=== PATIENT | male | born 1950 | race Caucasian/White ===

== ENCOUNTER 2016-07-27 20:19 | Emergency (ER) | payer BC ==
[~2016-07-27] VITALS: Ht 160 cm; Wt 50.0 kg
[2016-07-27 20:25] VITALS: Ht 160 cm; Wt 50.0 kg
[2016-07-27 23:08] VITALS: BP 125/89; PULSE 78; RESP 18
--- NOTE | 2016-08-02 11:33 | ERD ---
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 The patient reports a 10 out of 10 pain and it is very difficult for her to ambulate. She denies any loss of bowel or bladder function. There is no head injury or loss of consciousness. She denies any fevers, chills, nausea, vomiting, diarrhea, or other injuries at this time. ROS All systems reviewed and are negative except as per history of present illness. Allergies Allergies: Coded Allergies: NSAIDS (Non-Steroidal Anti-Inflamma (Verified Allergy, Unknown, 07/27/16) Penicillins (Verified Allergy, Unknown, 07/27/16) Zcttovz-Rdx-Edp Reductase Inhibitor (Verified Allergy, Unknown, 07/27/16) Sulfa (Sulfonamide Antibiotics) (Verified Allergy, Unknown, 07/27/16) codeine (Verified Allergy, Unknown, 07/27/16) nitrofurantoin (Verified Allergy, Unknown, 07/27/16) PMhx/Soc History of Surgery: Yes (RECTAL, HYSTERECTOMY, TONSILS) Anesthesia Reaction: No Hx Neurological Disorder: No Hx Respiratory Disorders: No Hx Cardiac Disorders: No Hx Psychiatric Problems: No Hx Miscellaneous Medical Probl: No Hx Alcohol Use: No Hx Substance Use: No Hx Tobacco Use: No Smoking Status: Unknown if ever smoked FmHx Noncontributory for chief complaint Physical Exam Vitals Temp: 98.3F Pulse: 93 bpm Blood pressure: 134/92 O2 sat: 100% on room air Pain intensity: 10 out of 10 Physical Exam INITIAL VITAL SIGNS: Reviewed by me. GENERAL: Alert and interactive. No acute distress. HEAD: Head is normocephalic and atraumatic. EYES: EOMI. No scleral icterus. No conjunctival injection. ENT: Moist mucosa. NECK: Supple. Full range of motion. RESPIRATORY: Normal respiratory effort. Clear breath sounds bilaterally. No wheezing, rales, or rhonchi. CV: Regular rate and rhythm. Normal S1 S2. No S3 or S4. No murmurs. ABDOMEN: Soft, non-distended, non-tender. No guarding. No rebound. No masses. EXTREMITIES: No deformity. Mild tenderness to palpation of anterior joint line of the right knee. Limited range of motion of the right knee secondary to pain. SKIN: Warm and dry. NEUROLOGIC: Alert and oriented x 4. Speech is normal. Moves all extremities equally. No motor or sensory deficits noted. Procedures/MDM EMERGENCY DEPARTMENT COURSE / MEDICAL DECISION MAKING: This is a 66-year-old female who comes to the emergency room secondary to complaints of right knee pain. The patient was not given pain control medication in the department due to multiple allergies including but not limited to NSAIDs, sulfa, codeine, and others. Radiology: Radiology studies were not indicated at this time due to the patient's extensive history of x-rays and MRIs on her right knee. The patient was offered another x-ray of the right knee but declined at this time. She states she will follow-up with her orthopedic doctor. The primary diagnosis is knee pain. I have low suspicion for septic joint, septic arthritis, septicemia, or other emergent conditions at this time. Discharge: I have discussed the lab results and diagnostic findings with the patient and answered any questions or concerns. The patient states she has a prescription for tramadol at home which she can take for this condition. The patient was given crutches and a knee brace in the department. The patient was advised to followup with their PMD in 1-2 days and to return to the Emergency Department if there are any new or worsening symptoms. The patient understood and agreed with the diagnosis, treatment and plan. The patient is stable for discharge at this time. Departure Diagnosis: Primary Impression: Knee pain Condition: Stable Patient Instructions: Knee Pain, Uncertain Cause, Knee Sprain Additional Instructions: Follow-up with your primary care physician within 1 week. Return to the emergency department immediately should you have any new or worsening symptoms, uncontrolled fevers, or other unexplained symptoms. Take all medications as directed. DESEAN FARRAR PA-C Aug 02, 2016 11:33
== END 2016-07-27 22:30 | disposition home or self-care (01) ==
LOC: EDSEX → FTE 20:19
DX: S89.91XA Unspecified injury of right lower leg, initial encounter (principal); X50.1XXA Overexertion from prolonged static or awkward postures, initial encounter; Y92.9 Unspecified place or not applicable
CPT/HCPCS: 99282

== ENCOUNTER → 2016-07-30 | Outpatient (CLI) | payer BC ==
[~2016-07-30] MED LIST: ASCO1TAB PO; LEVO75TA5 PO; ZINC50TA31 PO
--- NOTE | 2016-07-31 06:49 | HKNOTE ---
DATE OF SERVICE: 07/30/2016 MAIN COMPLAINT: Pain and stiffness in the right knee. 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 The patient has had pain in her knee for some time. She was seen by Dr. Farley. He obtained x-rays of the knee, but advised her that the knee was "normal." She requested an MRI scan of the knee and he refused to let her have one. She continued to have significant pain in her knee and asked her pole peeler, Dr. David Garcia, to ord er an MRI scan. The MRI reportedly showed a torn meniscus. The patient was referred to me by one o f her workers who has had surgery by me. The knee suddenly developed severe pain this past Friday. The pain had been increasing for about a month, but suddenly on Friday things came to a head, and she developed severe pain to the point where she was not able to walk. She was seen in the emergency room when her diagnosis could be made . She was given 2 crutches. PRESENT COMPLAINTS: The pain in the right knee is mainly in the lateral aspect of the knee and post erior. The pain does not radiate up or down the leg. The pain varies between moderate to severe. She is not able to bear any weight on the leg. The knee has not been swelling. She does not know i f it is unstable, of course she cannot bear weight on the leg. She does get rest pain and night pa in. She has been taking tramadol for the pain and has been applying ice and lidocaine cream as well as Voltaren cream. She has a long history of problems with her lower back. She has 3 bulging disk s in the lower back. She had 2 epidural cortisone injections in the past. Currently, she is not ab le to bear weight on the leg and has to use the crutches at all times. PAST ORTHOPEDIC HISTORY: PRIOR ORTHOPEDIC OPERATIONS: None. PRIOR CORTISONE INTAKE: Two cortisone injections into the lumbar spine area. ALCOHOL INTAKE: None. OTHER JOINT PROBLEMS: Right shoulder. BLOOD TESTS FOR ARTHRITIS: Yes, negative for rheumatoid arthritis. PRIOR INJURIES TO HIPS OR KNEES: None. 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 She walks at least 3 miles while she is at work. She has to do a lot of lifting and bending. She also has to do a great deal of excessive walking. PAST MEDICAL HISTORY: 1. Asthma. 2. Hypercholesterolemia (360). 3. Hypothyroid. PAST SURGICAL HISTORY: Hysterectomy in 1984. Tonsils and adenoids, 195. Rectocele repair, 2000. Endometriosis, cyst removed in 1978. ALLERGIES 1. PENICILLIN. 2. SULFA. 3. CODEINE. 4. NSAIDS. 5. STATINS. 6. MACRODANTIN. 7. BETHANECHOL CHLORIDE. FAMILY HISTORY: Father at 82 of diabetes. Mother at age 87 alive, has tuberculosis, diab etes, and heart problems. SYSTEMS REVIEW: History of dyspepsia, gait disturbance, otherwise negative. HABITS: The patient does not smoke or drink alcoholic beverages. BAKER BISCUIT: Neyda Sepulveda PHYSICAL EXAMINATION: GENERAL: The patient is a fit-looking and youthful 66-year-old female. She comes in with her [facility]. VITAL SIGNS: Height 5 feet 3 inches, weight 125 pounds. Blood pressure 135/80, temperature 98.8. GAIT: The patient walks with a pair of crutches, not able to walk at all without them. HIPS: Both hips have full range of motion without pain. RIGHT KNEE: Extension lacks 20 degrees and flexion is to 90 degrees. The patient has severe pain o n attempting to exceed the limits of motion and screams anytime the knee approaches those limits. H as 2+ effusion in the knee. Tender over the medial joint line. IMAGING: An MRI scan of the right knee brought obtained on 06/24/[address] Stark as showin. Nondisplaced tear of the posterior horn of the medial meniscus. 2. Moderate-sized popliteal cysts. 3. Trace joint effusion. DIAGNOSIS: Displaced tear the medial meniscus of the right knee. MANAGEMENT: A considerable time was spent discussing with the patient what the nature is of her men iscus (she is a nurse anyway). She was advised that she has all the classic symptoms of the knee lo cked due to a torn meniscus. The nature of the torn meniscus was discussed with her and her by making drawings. They were also shown a model of the knee. MANAGEMENT: The patient is advised that that she will need to have an arthroscopic operation on the knee. The surgery and some of the major possible complications were discussed with him in a fair a mount of detail. The patient should schedule her surgery to be performed in the near future. 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 Dictated By: BC BASILIO/NTS Conf#: [id number] DID#: [id number] CC: DAVID GARCIA MD;*EndCC*
== END | disposition home or self-care (01) ==
LOC: HKI 15:04
DX: S83.241D Other tear of medial meniscus, current injury, right knee, subsequent encounter (principal); X58.XXXD Exposure to other specified factors, subsequent encounter; Z88.0 Allergy status to penicillin; Z88.2 Allergy status to sulfonamides
CPT/HCPCS: G0463

== ENCOUNTER 2016-08-06 05:38 | Day surgery (SDC) | payer BC ==
[2016-08-01 12:13] LABS: BASOPHILS % 0.3 % (0.0-2.0); EOSINOPHILS # 0.1 10^3/ul (0.0-0.5); EOSINOPHILS % 0.9 % (0.0-7.0); HEMATOCRIT 41.6 % (37.0-47.0); LYMPHOCYTES % 30.6 % (15.0-51.0); MEAN CORPUSCULAR HGB CONC 33.8 g/dl (32.0-37.0); MEAN CORPUSCULAR VOLUME 85.8 fl (82.0-101.0); MEAN PLATELET VOLUME 8.1 fl (7.4-10.4); MONOCYTE # 0.6 10^3/ul (0.3-0.9); MONOCYTES % 9.4 % (0.0-11.0); NEUTROPHIL # 3.8 10^3/ul (1.6-7.5); NEUTROPHILS % 58.8 % (39.0-77.0); PLATELET COUNT 246 10^3/UL (140-440); RED BLOOD COUNT 4.84 10^6/ul (4.20-5.40); RED CELL DISTRIBUTION WIDTH 13.7 % (11.5-14.5); UNCORRECTED WBC 6.5 10^3/ul (4.8-10.8); WHITE BLOOD COUNT 6.5 10^3/ul (4.8-10.8)
[2016-08-01 12:15] LABS: CONDITION 1
[2016-08-01 12:26] LABS: INR 0.97; PROTIME 12.9 Sec (12.2-14.2)
[2016-08-01 12:28] LABS: ALBUMIN 4.3 g/dl (3.3-4.9); PARTIAL THROMBOPLASTIN TIME 30.3 Sec (25.0-35.0)
[2016-08-01 12:31] LABS: ALBUMIN/GLOBULIN RATIO 1.38; BILIRUBIN,INDIRECT 0.3 mg/dl (0-1.1); BILIRUBIN,TOTAL 0.3 mg/dl (0.2-1.3); TOTAL PROTEIN 7.4 g/dl (6.1-8.1)
[2016-08-01 12:51] LABS: ADD UMIC YES; CALCIUM 9.4 mg/dl (8.4-10.2); CREATININE 0.76 mg/dl (0.44-1.00); URINE BILIRUBIN (Dip) NEGATIVE (NEGATIVE); URINE BLOOD (Dip) NEGATIVE (NEGATIVE); URINE COLOR LT. YELLOW (YELLOW); URINE GLUCOSE (Dip) NEGATIVE (NEGATIVE); URINE KETONES (Dip) NEGATIVE (NEGATIVE); URINE LEUKOCYTE ESTERASE (Dip) 1+ (NEGATIVE); URINE NITRITE (Dip) NEGATIVE (NEGATIVE); URINE TOTAL PROTEIN (Dip) NEGATIVE (NEGATIVE); URINE UROBILINOGEN (Dip) 0.2 E.U./dL (0.1-1.0)
--- NOTE | 2016-08-01 12:57 | RADRPT ---
PROCEDURE: XR Chest. CLINICAL INDICATION: Preoperative chest TECHNIQUE: Chest PA and lateral COMPARISON: None available FINDINGS: The mediastinal structures are unremarkable. There is calcification of the thoracic aorta (consiste nt with atherosclerosis). The heart is normal in size and configuration. The pulmonary vascularity is normal. The lung nam are unremarkable. No consolidation is identified. The pleural spaces are unremarkable. There is mild upper thoracic degenerative disk disease. IMPRESSION: Calcification of the thoracic aorta (consistent with atherosclerosis). No evidence for active cardiopulmonary disease. RPTAT: HGDB .Ignacio Porter MD, MD Date Time Electronically viewed and signed by .Ignacio Porter MD, on 08/01/2016 12:57 .B/
[2016-08-01 13:18] LABS: BACTERIA,URINE RARE; URINE RBCS 0-2 /HPF (0)
--- NOTE | 2016-08-04 14:01 | RADRPT ---
Vent Rate: 65 bpm RR Interval: 0 msec MD Interval: 138 msec QRS Duration: 82 msec QT Interval: 398 msec QTC Interval: 413 msec P-R-T [place]: 26 - 61 - 52 degrees Normal sinus rhythm Normal ECG Electronically Signed By: Pedro Luis Navas [id number]
[2016-08-05 09:28] VITALS: BMI 21.5
--- NOTE | 2016-08-05 12:10 | PREOPHP ---
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 The patient states that she has been having pain in the right knee for a year or so and had an M RA done on the 24 of June which showed nondisplaced tear of the posterior on the medial menisc us and about a week ago, the patient while walking to her car felt a pop and was unable to walk with increasing pain, and the patient had been seen by Dr. Negrete and was recommended repair of the meniscus tear. REVIEW OF SYSTEMS: HEAD: No history of headaches, focal weakness, or numbness. EYES: No blurry vision or glaucoma. ENT: Status post tonsillectomy. NECK: No history of sinusitis, tonsillitis. CHEST: History of bronchial asthma since age 12, nonsmoker. HEART: No chest pain, palpitations or shortness of breath. Had a stress echo done 10 years ago [facility] was negative. History of hyperlipidemia with statin intolerance. The patient is a vegan and is quite careful with her diet. History of also gluten intolerance. GASTROINTESTINAL: No constipation, diarrhea, change in bowel habits. Has not had a colonoscopy. GENITOURINARY: History of tubal ligation and hysterectomy. BREASTS: Mammogram done last year was normal. SLEEP: Normal, tends to snore. No history of sleep apnea. HABITS: Does not smoke or drink. SOCIAL HISTORY: , has got 3 children. MEDICATIONS: Include: 1. Levothyroxine 75 mcg daily. 2. Vitamin C. 3. Zinc supplements. ALLERGIES: 1. PENICILLIN. 2. SULFA. 3. CODEINE. 4. NSAID. 5. MACRODANTIN. No history of weight loss or weight gain. FAMILY HISTORY: Father at age 82 of congestive heart failure complications. Mother has wise ry artery disease and diabetes mellitus. One sister had a factor XI deficiency. PHYSICAL EXAMINATION: GENERAL: The patient is an average-built female who is very pleasant, in no acute distress. VITAL SIGNS: Blood pressure 130/80, respiratory 20 per minute, pulse 80 per minute and regular. HEENT: Head normocephalic. No pallor, cyanosis, or icterus. Tongue is coated, dry. NECK: Supple. No thyromegaly, bruits, or lymphadenopathy. LUNGS: Clinically clear. HEART: S1, S2 heard with no definite gallops. ABDOMEN: Soft, nontender, no hepatosplenomegaly. EXTREMITIES: No edema. Pedal pulsations 2+ bilaterally. Homans sign is negative. NEUROLOGIC: No localizing or lateralizing signs. PELVIC, RECTAL, BREAST: Deferred at the patient's request. EKG shows normal sinus rhythm with no a cute changes. Chest x-ray shows normal size heart, lung nam clear. LABORATORY DATA: WBC count 6.5, hematocrit 41.6. Sed rate 22. Sodium 142, potassium 4, BUN 10, cr eatinine 0.76. INR 0.97. EKG shows normal sinus rhythm with no acute changes. IMPRESSION: 1. Right knee internal injury with a medial meniscus tear. 2. Hypothyroidism. 3. Hyperlipidemia. PLAN: The patient's overall medical condition is stable for the proposed surgery. Dictated By: ELYSE MEZA MD, SR/EMRE Conf#: [id number] DID#: [id number]
[2016-08-06] VITALS (12 sets, daily range): BP systolic 114–131; BP diastolic 59–84; PULSE 80–98; RESP 16–18; Ht 160 cm; Wt 57.3 kg
[~2016-08-06] VITALS: Ht 160 cm; Wt 57.3 kg
[2016-08-06] MEDS ORDERED: DEXAMETHASONE 4 MG/ML 1 ML INJ IV ONE (06:00)
[2016-08-06] MEDS ORDERED: LACTATED RINGER'S 1,000 ML IV* SCH (06:00)
[2016-08-06] MEDS ORDERED: ONDANSETRON 4 MG INJ IV ONE (06:00)
[2016-08-06] MEDS ORDERED: VANCOMYCIN 1 GM (PMX) 250 ML IVPB ONE (06:00)
[2016-08-06] MEDS ORDERED: ACETAMINOPHEN 1000MG/100ML IV 100 ML IVPB ONE (06:00)
[2016-08-06] MEDS ORDERED: LANSOPRAZOLE 30 MG CAP PO ONE (06:00)
[2016-08-06] MEDS ORDERED: MIDAZOLAM 1 MG/ML 2 ML INJ IV PRN (06:30)
[2016-08-06] MEDS ORDERED: FENTAnyl 50 MCG/ML VIAL IV PRN ×2 (06:30)
[2016-08-06] MEDS ORDERED: LABETALOL HCL 20MG INJ IV PRN (06:30)
[2016-08-06] MEDS ORDERED: MEPERIDINE 25 MG INJ IV PRN (06:30)
[2016-08-06] MEDS ORDERED: ATROPINE 1 MG/10 ML SYRINGE IV PRN (06:30)
[2016-08-06] MEDS ORDERED: hydrALAzine 20 MG INJ IV PRN (06:30)
[2016-08-06] MEDS ORDERED: DIPHENHYDRAMINE 50 MG INJ IV PRN (06:30)
[2016-08-06] MEDS ORDERED: EPHEDrine SULFATE 50 MG/5 ML SYG IV PRN (06:30)
[2016-08-06] MEDS ORDERED: ONDANSETRON 4 MG INJ IV PRN ×2 (06:30→11:00)
[2016-08-06] MEDS ORDERED: PROPOFOL 20 ML ONE (06:32)
[2016-08-06] MEDS ORDERED: MIDAZOLAM 1 MG/ML 2 ML INJ ONE (06:32)
[2016-08-06] MEDS ORDERED: GLYCOPYRROLATE 0.4 MG INJ ONE (06:32)
[2016-08-06] MEDS ORDERED: LIDOCAINE 2% (SDV) 5 ML INJ ONE (06:32)
[2016-08-06] MEDS ORDERED: NEOSTIGMINE 3 MG/3 ML SYRINGE ONE (06:32)
[2016-08-06] MEDS ORDERED: ROCURONIUM 50 MG INJ ONE (06:32)
[2016-08-06] MEDS ORDERED: FENTAnyl 50 MCG/ML VIAL ONE (06:33)
[2016-08-06] MEDS ORDERED: ZINC50TA31 PO (06:37)
[2016-08-06] MEDS ORDERED: ASCO1TAB PO (06:37)
[2016-08-06] MEDS ORDERED: LEVO75TA5 PO (06:37)
[2016-08-06] MEDS ORDERED: ONDANSETRON 4 MG INJ ONE (06:40)
[2016-08-06] MEDS ORDERED: ROPIVACAINE 0.5 % 30 ML VIAL ONE (07:00)
[2016-08-06] MEDS ORDERED: BUPIVACAINE 0.25%/EPI (SDV) 30 ML INJ ONE (07:00)
[2016-08-06] MEDS ORDERED: KETOROLAC 30 MG INJ ONE (07:00)
[2016-08-06] MEDS ORDERED: morphine SULFATE/PF (10 MG/10 ML) INJ ONE (07:00)
--- NOTE | 2016-08-06 07:01 | HPN ---
Date/Time of Note Date/Time of Note DATE: 08/06/16 TIME: 07:00 Interval H&P Admission Note Pt. seen H&P reviewed: No system changes SHARIF PARKER PA-C Aug 06, 2016 07:01
[2016-08-06] MEDS ORDERED: traMADol 50 MG TAB GTB PRN ×2 (09:30→11:00)
[2016-08-06] MEDS ORDERED: ACETAMINOPHEN 1000MG/100ML IV 100 ML IVPB SCH (09:30)
[2016-08-06] MEDS ORDERED: morphine 10 MG INJ IV PRN (11:00)
--- NOTE | 2016-08-06 13:16 | OPR ---
DATE OF OPERATION: 08/06/2016 SURGEON: Dr. Negrete. CONSTRUCTION WORKER: ____. ANESTHESIOLOGIST: Dr. Garner. PREOPERATIVE DIAGNOSIS: Torn medial meniscus of the right knee. POSTOPERATIVE DIAGNOSES: 1. Torn medial meniscus of the right knee. 2. Degenerative osteoarthritis of the patellofemoral joint, the medial tibial plateau and medial fe moral condyle as well as the lateral tibial plateau. PROCEDURES 1. Diagnostic arthroscopy. 2. Partial medial meniscectomy. FINDINGS AT SURGERY: The patient was found to have grade I degenerative changes on the trochlear gr oove and the patella as well as on the medial tibial plateau and the lateral tibial plateau. The lat eral tibial plateau was worse than the medial tibial plateau. Most of the medial femoral condyle was normal except for a small area near the weightbearing surface where there was grade I/grade II dege nerative changes. The medial meniscus showed a root tear of the posterior horn and extension for approximately half an inch into the posterior end of the meniscus. The rest of the medial meniscus was entirely normal. The lateral compartment was completely normal other than the softening of the lateral tibial platea u. DESCRIPTION OF PROCEDURE: Under general anesthetic, the right hip was prepared and draped in the [facility] sterile fashion. Standard inferomedial and ____ lateral portals were used. The knee was syste matically inspected, and the above findings were noted. Using a variety of basket forceps and the motorized intraarticular shaver, a partial medial meniscec erasmo was performed. The remaining meniscus was completely balanced and stable. No other surgical treatment was required in this knee. The wound was copiously irrigated to remove contained fragments. The fluid was aspirated. The wounds were closed with interrupted nylon. The knee was injected with a cocktail mixture of Duramorph and Toradol. The usual sterile dressings were applied. The patient returned to recovery room in stable condition . There were no problems or complications as far as is known. Dictated By: BC BASILIO/EMRE Conf#: [id number] DID#: [id number]
== END 2016-08-06 11:13 | disposition home or self-care (01) ==
LOC: SDS 05:38
DX: M23.221 Derangement of posterior horn of medial meniscus due to old tear or injury, right knee (principal); M17.11 Unilateral primary osteoarthritis, right knee; E78.5 Hyperlipidemia, unspecified; J45.909 Unspecified asthma, uncomplicated; E03.9 Hypothyroidism, unspecified
CPT/HCPCS: 29881; 71020; 80053; 81001; 85025; 85610; 85651; 85730; 93005; J0131; J1100; J1885; J2250; J2274; J2405; J2710; J2795; J3010; J3370; 81003

== ENCOUNTER → 2016-08-08 | Outpatient (CLI) | payer BC ==
--- NOTE | 2016-08-09 03:23 | HKNOTE ---
DATE OF SERVICE: 08/08/2016 Patient comes in for her first postoperative followup check following right knee arthroscopy. She i s in a great deal of pain. She can hardly walk. She has a pair of crutches. She is not putting an y weight on the right leg. THE PATIENT IS ALLERGIC TO ALMOST EVERY PAIN MEDICATION. She has been t aking tramadol for the pain, which she states is "totally not helping me." PHYSICAL EXAMINATION: Temperature is 97.4. The wound looks excellent. Band-Aids were applied. Un teresa sterile conditions, she given 1 mL of Kenalog and 4 mL of 2% lidocaine into the knee, and she wi ll be seen again as per her previous appointment. She was advised to discontinue the crutches as so on as she can. Dictated By: BC BASILIO/EMRE Conf#: [id number] DID#: [id number]
== END | disposition home or self-care (01) ==
LOC: EDSEX → HKI 14:10
DX: Z47.1 Aftercare following joint replacement surgery (principal); Z96.651 Presence of right artificial knee joint
CPT/HCPCS: 20610; G0463

== ENCOUNTER → 2016-08-15 | Outpatient (CLI) | payer BC ==
--- NOTE | 2016-08-15 22:06 | HKNOTE ---
DATE OF SERVICE: 08/15/2016 NEW CONDITION: Patient comes in for checkup on her right knee. She had arthroscopic surgery on the knee on 017. She comes in for a wound check. Meanwhile, she has in the past developed quite marked pain in her l ower back, radiating to the right buttock. Patient has a long history of problems with her lower back. She has had previous epidural injection s. She had multiple lumbar epidural cortisone injections in the past. She has no pain in the right knee. PHYSICAL EXAMINATION: VITAL SIGNS: Height 5 feet 3 inches, weight 125 pounds, blood pressure 140/80, temperature 97.5. RIGHT KNEE: The wounds on her right knee have healed completely. The sutures were removed today an d Steri-Strips were applied. LUMBAR SPINE/BACK: Pain in the right buttock is reproduced, bilateral flexion to the right, as well as hyperextension of the lumbar spine. NEUROLOGIC: Motor examination reveals no muscle deficit in the lower extremities. Deep tendon refle xes in the lower extremities: Right knee jerk +, left knee jerk +, right ankle jerk +, left ankle j erk +. Straight leg raising is negative bilaterally at 80 degrees. Lasegue and MARY tests are negat bean. IMAGING: MRI scan of the lumbar spine obtained on 02/15/2016 was reviewed. This was reported as sh owing "Left renal cyst." (This was shown to the patient. She was given a copy of the report and adv ised to see her commercial representative.) At L4-5, severe loss of intervertebral disk height associated with chronic discogenic endplate irreg ularities and minimal reactive discogenic endplate edema, and a 3 mm disk bulge and some posterior o steophyte spurring. The spinal canal was minimally narrowed. The disk osteophyte complex extends p redominantly into the right neural foramen, which is mildly stenotic. The left neural foramen is mi nimally stenotic. At L3-4, retrolisthesis of L3. Asymmetric disk bulging. DISCUSSION: Patient's knee is doing well. She was given a prescription for outpatient physical the rapy. She was given a copy of the lumbar MRI scan. She is being referred to Dr. Lazaro wood pain management of the lumbar spine. Possibly also she needs is an epidural injection. This will be left up to Dr. Ramesh. The patient will be seen by me again in 6 weeks' time for reevaluation. Dictated By: BC BASILIO/EMRE Conf#: [id number] DID#: [id number]
== END | disposition home or self-care (01) ==
LOC: EDSEX → HKI 14:06
DX: Z47.89 Encounter for other orthopedic aftercare (principal)

== ENCOUNTER → 2016-09-24 | Outpatient (CLI) | payer BC ==
--- NOTE | 2016-09-25 07:37 | HKNOTE ---
DATE OF SERVICE: 09/24/[address] Ruano. She comes in for a recheck on her right knee. Dr. Ruano recommended that she have a spinal stimulator. Insurance company turned her down. She i s going to be getting a new MRI scan of her cervical spine and see Dr. Ruano thereafter. PHYSICAL EXAMINATION: VITAL SIGNS: Temperature 97.8. RIGHT KNEE: The right knee shows normal alignment. Active and passive extension is 0 degrees. Activ e and passive flexion is 135 degrees. The medial and lateral collateral ligaments and cruciate ligam ents are intact. Nishi test is negative. There is no effusion, tenderness, scarring, crepitus, or cysts. The patella tracks normally. There is no tenderness on the articular surface of the patella o r in the patellar groove. The Q angle is normal. Patient will continue with Dr. Ruano and will not be seen by me again unless requested for some oth er condition. Dictated By: BC BASILIO/EMRE Conf#: [id number] DID#: [id number]
== END | disposition home or self-care (01) ==
LOC: HKI 13:59
DX: M25.561 Pain in right knee (principal)

== ENCOUNTER → 2016-12-19 | Outpatient (CLI) | payer BC ==
--- NOTE | 2016-12-19 15:43 | PN ---
Date/Time of Note Date/Time of Note DATE: 12/19/16 TIME: 15:36 Outpatient Progress Note Chief Complaint 5 month status post right knee arthroscopy HPI 66-year-old female presents today for 5 month clinic evaluation status post right knee arthroscopy performed on 08/06/2016. Patient had diagnostic arthroscopy with partial medial meniscectomy. In regards to pain patient denies any specific pain complaints outside of mild aches at night depending on level of activity. Her main complaint is that at times, usually with walking long distances she develops clicking and then her knee locks which can create discomfort and pain. She denies any falls or injury. Episodes of locking can occur almost every day. Patient does state however, she has had significant improvement status post arthroscopy performed in July 2016. Patient has also seen multimedia authoring specialist in which she states that she has extensive disc herniation to multiple levels of the lumbar spine and currently undergoing physical therapy which has been helping. She is also had epidural to the lumbar spine since she was last seen which helps. Review of Systems Const: No Fever, no chills, no Fatigue, normal appetite, no diaphoresis. Resp: No SOB, no wheezing, no chest pain. CV: No chest pain, no palpitaions, no BUENO. Physical Exam Blood pressure is 140/72, temperature is 98.1, pulse is 89, respiratory rate is 12, height is 5 foot 3 inches, weight is 125 pounds General Appearance: well-developed, well-nourished, in no acute distress. Right knee: Well-healed surgical scar to the right knee. Full range of motion to the right knee on exam. 5/5 strength on resistance. No clicking or popping on exam. Negative Dakota's. Negative Nishi's test. Imaging X-ray to the right knee performed on 12/19/2016 is significant for mild to moderate joint space narrowing. No significant arthritis seen on x-ray. No signs of any acute injury. Allergies Coded Allergies: NSAIDS (Non-Steroidal Anti-Inflamma (Verified Allergy, Unknown, 08/06/16) Penicillins (Verified Allergy, Unknown, 08/06/16) Opzrvrd-Qme-Xmj Reductase Inhibitor (Verified Allergy, Unknown, 08/06/16) Sulfa (Sulfonamide Antibiotics) (Verified Allergy, Unknown, 08/06/16) bethanechol (Verified Allergy, Unknown, 08/06/16) codeine (Verified Allergy, Unknown, 08/06/16) nitrofurantoin (Verified Allergy, Unknown, 08/06/16) Assessment/Plan * Patient continues to do well. Patient would like to avoid any invasive procedures. * Lengthy discussion had with patient and Dr. Negrete today. Dr. Negrete feels a cortisone injection is not warranted given that patient's main complaint is not pain but more so locking. * Dr. Negrete did offer repeat MRI exam for further evaluation to rule out new injury but patient does not feel that it is necessary at this time. * Patient is decided to follow-up as needed and if symptoms become more severe or persistent she will return. * Anti-inflammatories as needed Dr. Negrete was present for examination and agrees with plan Medications Home Meds Reported Medications Zinc (ZINC) 50 Mg Tablet, 50 MG PO, TAB 08/06/16 Ascorbic Acid/Bioflavonoids (Vit C-Bioflavonoids Tab SA) 1 Each Tablet.er, 1 EACH PO, TAB 08/06/16 Levothyroxine Sodium* (Levothyroxine Sodium*) 75 Mcg Tablet, 75 MCG PO BEFORE BREAKFAST, #30 TAB 08/06/16 SHARIF PARKER PA-C Dec 19, 2016 15:43
--- NOTE | 2016-12-19 17:56 | RADRPT ---
PROCEDURE: Right knee radiographs. CLINICAL INDICATION: Right knee pain. TECHNIQUE: Three views. Weight bearing. Frontal, lateral, and patellar view. COMPARISON: No prior studies are available for comparison. FINDINGS: There is no fracture or dislocation. The soft tissues are normal. There are degenerative changes with osteophytes arising from the lateral and patellofemoral joint co mpartment margins. There is mild medial joint compartment narrowing. There is no lytic or blastic lesion. There is no radiopaque foreign body. IMPRESSION: 1. Moderate degenerative changes of the right knee. 2. No acute abnormality. RPTAT: QQ .Cesar Samuel MD, MD Date Time Electronically viewed and signed by .Cesar Samuel MD, MD on 12/19/2016 17:56 .R/
== END | disposition home or self-care (01) ==
LOC: HKI 14:23
DX: Z47.89 Encounter for other orthopedic aftercare (principal); S83.241S Other tear of medial meniscus, current injury, right knee, sequela
CPT/HCPCS: 73562; G0463